=== PATIENT | male | born 1940 | race Caucasian/White ===

== ENCOUNTER 2017-10-09 21:19 | Emergency (ER) | payer OTHER ==
[~2017-10-09] VITALS: Ht 172.7 cm; Wt 81.7 kg
[~2017-10-09 21:19] MED LIST: ALBU3IS INH; ALBU90OI INH; ATOR10 PO; ATOR20 PO; Amiodarone HCl200 MG PO; CARV3.125 PO; DOCU100 PO; ELIQUIS5 MG PO; ENTRESTO 24 MG1 EACH PO; FURO100EL PO; LISI5 PO; Lasix40 MG PO; Nicotine Patch1 EAC4 TOP; PRED20 PO; SPIR25 PO; TEMA15 PO
== END 2017-10-10 00:26 ==
LOC: ER 21:19
DX: I46.9 Cardiac arrest, cause unspecified (principal); J44.9 Chronic obstructive pulmonary disease, unspecified; I25.10 Atherosclerotic heart disease of native coronary artery without angina pectoris; I50.9 Heart failure, unspecified; Z79.899 Other long term (current) drug therapy
CPT/HCPCS: 36415; 92950; 96374; 96375; 99285